=== PATIENT | male | born 1985 | race Caucasian/White ===

== ENCOUNTER 2024-11-15 00:30 | Emergency (ER) | payer BC, OTHER ==
[~2024-11-15] VITALS: Ht 182.9 cm; Wt 76.2 kg
[2024-11-15] MEDS: TDAP [DIPH/PERTUSSIS/TET] 0.5 ML VIAL IM ONE (02:17)
[2024-11-15 02:19] VITALS: BP 133/62; TEMP 98.1; O2SAT 98
== END 2024-11-15 02:20 | disposition home or self-care (01) ==
LOC: ER 00:34
DX: S01.412A Laceration without foreign body of left cheek and temporomandibular area, initial encounter (principal); X58.XXXA Exposure to other specified factors, initial encounter; Y93.89 Activity, other specified; Y92.89 Other specified places as the place of occurrence of the external cause; Y99.8 Other external cause status